=== PATIENT | female | born 1985 | race Caucasian/White ===

== ENCOUNTER 2021-11-07 01:38 | Emergency (ER) | payer SELFPAY ==
[2021-11-07] MEDS ORDERED: Dexamethasone 10 MG/ML VIAL ONE (03:10)
[2021-11-07] MEDS ORDERED: Ketorolac Tromethamine 30 MG/ML VIAL ONE (03:10)
[2021-11-07] MEDS ORDERED: Lidocaine 1% (PF) 30 ML VIAL ONE (03:11)
[2021-11-07] MEDS ORDERED: cefTRIAXone\\ROCEPHIN 1 GM VIAL ONE (03:11)
== END 2021-11-07 03:40 | disposition home or self-care (01) ==
LOC: CSHERS 01:38
DX: J36 Peritonsillar abscess (principal); I10 Essential (primary) hypertension; F17.210 Nicotine dependence, cigarettes, uncomplicated
CPT/HCPCS: 96372; 99283; J0696; J1100; J1885; J2001